=== PATIENT | male | born 1960 | race Caucasian/White ===

== ENCOUNTER 2018-05-09 09:20 | Day surgery (SDC) | payer BC ==
--- NOTE | 2018-05-09 07:33 | PCM.PREANE ---
Preanesthetic Assessment - Anesthesia/Transfusion/Family Hx Anesthesia History: Prior Anesthesia Without Reaction (left hand surgery) Family History of Anesthesia Reaction: No Transfusion History: No Prior Transfusion(s) - Review of Systems Pulmonary: No Symptoms (smoker) Gastrointestinal: No Symptoms (GERD) Neurological: No Symptoms (anxiety) Other: Reports: None (DJD) - Physical Assessment Height: 1.8 m Weight: 75.75 kg - Allergies Allergies/Adverse Reactions: Allergies Allergy/AdvReac Type Severity Reaction Status Date / Time Iodinated Contrast- Oral and Allergy Rash Verified 05/03/18 14:49 IV Dye - Blood Blood Available: No Product(s) Available: None - Anesthesia Plan Pre-Op Medication Ordered: None - Acknowledgements Anesthesia Type Planned: General Anesthesia PreAnesthesia Questionnaire HEENT History: Reports: Other (See Below) Other HEENT History: wears glasses Gastrointestinal History: Reports: GERD Musculoskeletal History: Reports: Arthritis, Fracture Other Musculoskeletal History: hx fx little toe x2 Psychiatric History: Reports: Anxiety - Past Surgical History Head Surgeries/Procedures: Reports: None Musculoskeletal Surgical History: Reports: Other (See Below) Other Musculoskeletal Surgeries/Procedures:: hx surgery on left hand - SUBSTANCE USE Smoking Status *Q: Current Every Day Smoker Tobacco Use Within Last Twelve Months: Cigarettes Recreational Drug Use History: No - HOME MEDS Home Medications: Home Meds Diclofenac Sodium [Voltaren] 50 mg PO BEDTIME 05/03/18 [History] LORazepam [Ativan] 0.5 mg PO ASDIRECTED PRN 05/03/18 [History] Omeprazole 20 mg PO DAILY 05/03/18 [History] - CURRENT (IN HOUSE) MEDS Current Meds: Current Medications Hydrocodone Bitart/Acetaminophen ([place] 325-5 Mg) 1 tab PO Q4H PRN PRN Reason: Pain Bupivacaine HCl/Epinephrine Bitart ([place]aine 0.25%/Epinephrine 1:200,000) 10 ml INJECT ONETIME ONE Stop: 05/09/18 08:01 Cefazolin Sodium/Dextrose 2 gm (/ Premix) 50 mls @ 100 mls/hr IV ONETIME ONE Stop: 05/09/18 08:29 Lactated Ringer's (Ringers, Lactated) 1,000 mls @ 125 mls/hr IV ASDIRECTED [facility]
[~2018-05-09 09:20] MED LIST: Acetaminophen/HYDROcodone 325-5 MG Tab PO PRN; Bupivacaine 0.25%/EPINEPHrine 1:200,000 10 ML SDV INJECT ONE; Bupivacaine 25%/EPINEPHrine/PF 30 ML ONE; Lactated Ringers 1,000 ML IV SCH; ceFAZolin 2 GM in Premix Bag 1 BAG IV ONE
--- NOTE | 2018-05-09 10:23 | PCM.PREANE ---
Preanesthetic Assessment - Anesthesia/Transfusion/Family Hx Anesthesia History: Prior Anesthesia Without Reaction (left hand surgery) Family History of Anesthesia Reaction: No Transfusion History: No Prior Transfusion(s) - Review of Systems General: No Symptoms Pulmonary: No Symptoms Cardiovascular: No Symptoms Gastrointestinal: No Symptoms Neurological: No Symptoms Other: Reports: Anxiety (has KENNY, took lorazepan this am) - Physical Assessment NPO Status Date: 05/08/18 Height: 1.8 m Weight: 75.75 kg ASA Class: 2 Mental Status: Alert & Oriented x3 Airway Class: Mallampati = 2 Dentition: Reports: Broken Tooth/Teeth ROM/Head Extension: Full Lungs: Clear to Auscultation, Normal Respiratory Effort Cardiovascular: Regular Rate, Regular Rhythm - Allergies Allergies/Adverse Reactions: Allergies Allergy/AdvReac Type Severity Reaction Status Date / Time Iodinated Contrast- Oral and Allergy Rash Verified 05/03/18 14:49 IV Dye - Blood Blood Available: No Product(s) Available: None - Anesthesia Plan Pre-Op Medication Ordered: None - Acknowledgements Anesthesia Type Planned: General Anesthesia Pt an Appropriate Candidate for the Planned Anesthesia: Yes Alternatives and Risks of Anesthesia Discussed w Pt/Guardian: Yes Pt/Guardian Understands and Agrees with Anesthesia Plan: Yes Additional Comments: PLAN: GA_LMA PreAnesthesia Questionnaire HEENT History: Reports: Other (See Below) Other HEENT History: wears glasses Gastrointestinal History: Reports: GERD Musculoskeletal History: Reports: Arthritis, Fracture Other Musculoskeletal History: hx fx little toe x2 Psychiatric History: Reports: Anxiety - Past Surgical History Head Surgeries/Procedures: Reports: None Musculoskeletal Surgical History: Reports: Other (See Below) Other Musculoskeletal Surgeries/Procedures:: hx surgery on left hand - SUBSTANCE USE Smoking Status *Q: Current Every Day Smoker Tobacco Use Within Last Twelve Months: Cigarettes Recreational Drug Use History: No - HOME MEDS Home Medications: Home Meds Diclofenac Sodium [Voltaren] 50 mg PO BEDTIME 05/03/18 [History] LORazepam [Ativan] 0.5 mg PO ASDIRECTED PRN 05/03/18 [History] Omeprazole 20 mg PO DAILY 05/03/18 [History] - CURRENT (IN HOUSE) MEDS Current Meds: Current Medications Hydrocodone Bitart/Acetaminophen ([place] 325-5 Mg) 1 tab PO Q4H PRN PRN Reason: Pain Lactated Ringer's (Ringers, Lactated) 1,000 mls @ 125 mls/hr IV ASDIRECTED [facility] Discontinued Medications Bupivacaine HCl/Epinephrine Bitart (Marcaine 0.25%/Epinephrine 1:200,000) 10 ml INJECT ONETIME ONE Stop: 05/09/18 08:01 Cefazolin Sodium/Dextrose 2 gm (/ Premix) 50 mls @ 100 mls/hr IV ONETIME ONE Stop: 05/09/18 08:29 Bupivacaine HCl/Epinephrine Bitart (Sensorc Mpf 0.25%-Epi [id number]) Confirm Administered Dose 30 mls @ as directed .ROUTE .STK-MED ONE Stop: 05/09/18 07:53
[2018-05-09] MEDS ORDERED: Propofol 200 MG/20 ML SDV ONE (11:40)
[2018-05-09] MEDS ORDERED: Midazolam 1 MG/ML 2 ML SDV ONE (11:41)
[2018-05-09] MEDS ORDERED: fentaNYL 100 MCG/2 ML SDV ONE ×2 (11:41→13:28)
[2018-05-09] MEDS ORDERED: ceFAZolin/Dextrose,Iso-Osmotic 2 GM/50 ML Duplex Bag IV ONE (11:50)
[2018-05-09] MEDS ORDERED: Ondansetron 4 MG/2 ML SDV ONE (13:19)
[2018-05-09] MEDS ORDERED: Ketorolac 30 MG/ML SDV ONE (13:57)
--- NOTE | 2018-05-09 14:31 | PCM.POSTAN ---
POST ANESTHESIA ASSESSMENT - MENTAL STATUS Mental Status: Alert, Oriented - VITAL SIGNS Pulse Rate: 95 SaO2: 95 Resp Rate: 16 Blood Pressure: 125/82 Temperature: 37.1 C - RESPIRATORY Respiratory Status: Respiratory Rate WNL, Airway Patent, O2 Saturation Stable - CARDIOVASCULAR CV Status: Pulse Rate WNL, Blood Pressure Stable - GASTROINTESTINAL GI Status: No Symptoms - PAIN Pain Score: 0 (no pain,no nausea.) - POST OP HYDRATION Hydration Status: Adequate & Stable - OBSERVATIONS Free Text/Narrative:: good post op phase I recovery.
--- NOTE | 2018-05-09 14:52 | PCM48HPAN ---
Post Anesthesia Note - EVALUATION WITHIN 48HRS OF ANESTHETIC Vital Signs in Normal Range: Yes Patient Participated in Evaluation: Yes Respiratory Function Stable: Yes Airway Patent: Yes Cardiovascular Function Stable: Yes Hydration Status Stable: Yes Pain Control Satisfactory: Yes Nausea and Vomiting Control Satisfactory: Yes Pulse Rate: 95 SaO2: 96 Resp Rate: 20 Temperature: 37.1 C Blood Pressure: 125/82 - COMMENTS/OBSERVATIONS Free Text/Narrative:: Good post op phase II reovery.
--- NOTE | 2018-05-12 08:58 | PCM.OPNOTE ---
- General Post-Op/Procedure Note Date of Surgery/Procedure: 05/09/18 Operative Procedure(s): right carpometacarpal thumb arthroplasty - trapeziectomy with proximal metacarpal resection and ligament reconstruction with tendon interposition of the flexor carpi radialis tendon Pre Op Diagnosis: right thumb carpometacarpal arthritis severe Post-Op Diagnosis: Same Anesthesia Technique: General LMA, Local Primary Surgeon: Esther Cortez Road Worker: Pamela Ramirez Complications: None Condition: Good
--- NOTE | 2018-05-14 13:51 | OR ---
SURGEON: ERICA TINEO MD DATE OF PROCEDURE: 05/09/2018 PREOPERATIVE DIAGNOSIS: Right carpometacarpal arthritis, severe. POSTOPERATIVE DIAGNOSIS: Right carpometacarpal arthritis, severe. PROCEDURE: Right thumb carpometacarpal arthroplasty (trapeziectomy with proximal metacarpal resection and ligament reconstruction with tendon interposition of the flexor carpi radialis tendon). CAD DETAILER: SONA Pfeiffer. REASON FOR AND ROLE OF CAD DETAILER: Retraction, prepping, draping, positioning and closure assistance. ANESTHESIA: General LMA with local. INDICATIONS: Mr. Montoya is a 57-year-old gentleman seen today in evaluation for his severe right thumb CMC arthritis. He has previously had arthroplasty on the left and done well with that. He would like to proceed on the right. Risks were including, but not limited to, bleeding, infection, damage to underlying or overlying structures, possible need for future interventions, and possible scarring. PROCEDURE IN DETAIL: After informed consent was obtained and placed on the chart, the patient was brought to the operating theater and laid in supine position. After adequate general anesthesia was obtained, the area was prepped and draped and a time-out was completed to confirm side and site. After the arm was exsanguinated and tourniquet was insufflated to 200 mmHg, a curvilinear incision was made over the trapezium of the right thumb CMC joint. Dissection was carried down onto the bone itself and circumferentially around it and the trapezium was removed en bloc. Once adequately removed, fluoroscopy was used to confirm appropriate placement and the proximal metacarpal head was also transected using a bone saw to remove the arthritic portion. A debbie was then used to debbie a hole in the proximal end of the metacarpal through the sidewall for the ligament suspension. Once this was completed, a small volar forearm incision was made over the flexor carpi radialis musculotendinous junction. This was dissected and the tendon itself was removed from the muscular junction and brought into the distal wound. The tendon itself was placed through the proximal metacarpal debbie hole and folded back upon itself. Appropriate suspension was obtained and this was sutured to itself using a 4-0 FiberWire suture for suspension and appropriate opposition position. Once this was completed, the remainder of the tendon was rolled into a spacer and sutured together using the 4-0 Monocryl and 4-0 FiberWire. It was then sutured into the base of the wound for adequate cushion and a spacer in place of the trapezium. Once adequately placed, the tourniquet was desufflated and meticulous hemostasis was obtained and the joint capsule was then closed using a 4-0 Monocryl stitch. Once adequately closed and copiously irrigated, the skin was then closed using a 4-0 Monocryl stitch in a running subcuticular fashion. It was dressed with Steri-Strips. The patient tolerated this procedure well and the wound was dressed with fluffs, Kerlix, and a short-arm thumb spica splint for appropriate positioning. FOLLOWUP INSTRUCTIONS: The patient was given a prescription for pain control and will see us in followup evaluation in 2 weeks for custom splint placement. He was given a prescription for pain control. Call with any issues or concerns in the meantime. HEGGTHE / MARGARET /[id number]
== END 2018-05-09 15:40 | disposition home or self-care (01) ==
LOC: MW.SDS 09:20
PROVIDERS: ATTEND Plastic Surgery
DX: M18.11 Unilateral primary osteoarthritis of first carpometacarpal joint, right hand (principal); K21.9 Gastro-esophageal reflux disease without esophagitis; F17.210 Nicotine dependence, cigarettes, uncomplicated; Z91.041 Radiographic dye allergy status
CPT/HCPCS: 25447; 88304; 88311; J0690; J1885; J2250; J2405; J2704; J3010; J7120; 01830

== ENCOUNTER 2018-09-28 07:48 | Day surgery (SDC) | payer BC ==
[~2018-09-28 07:48] MED LIST changes: -Acetaminophen/HYDROcodone 325-5 MG Tab PO PRN; -Bupivacaine 0.25%/EPINEPHrine 1:200,000 10 ML SDV INJECT ONE; -Bupivacaine 25%/EPINEPHrine/PF 30 ML ONE; -ceFAZolin 2 GM in Premix Bag 1 BAG IV ONE
--- NOTE | 2018-09-28 08:46 | PCM.PREANE ---
Preanesthetic Assessment - Anesthesia/Transfusion/Family Hx Anesthesia History: Prior Anesthesia Without Reaction Family History of Anesthesia Reaction: No Transfusion History: No Prior Transfusion(s) Intubation History: Unknown - Review of Systems General: No Symptoms Pulmonary: No Symptoms Cardiovascular: No Symptoms Gastrointestinal: No Symptoms, Other (last colonoscopy 10 years ago - normal) Neurological: No Symptoms Other: Reports: None - Physical Assessment NPO Status Date: 09/27/18 NPO Status Time: 11:59 O2 Sat by Pulse Oximetry: 97 Respiratory Rate: 18 Vital Signs: Last Vital Signs Temp 36.0 C 09/28/18 08:15 Pulse 80 09/28/18 08:15 Resp 18 09/28/18 08:15 BP 136/88 09/28/18 08:15 Pulse Ox 97 09/28/18 08:15 Height: 5 ft 11 in Weight: 80.739 kg ASA Class: 2 Mental Status: Alert & Oriented x3 Airway Class: Mallampati = 2 Dentition: Reports: Normal Dentition (upper front teeth chipped) Thyro-Mental Finger Breadths: 3 Mouth Opening Finger Breadths: 3 ROM/Head Extension: Full Lungs: Clear to Auscultation, Normal Respiratory Effort Cardiovascular: Regular Rate, Regular Rhythm - Allergies Allergies/Adverse Reactions: Allergies Allergy/AdvReac Type Severity Reaction Status Date / Time Iodinated Contrast- Oral and Allergy Rash Verified 09/25/18 15:23 IV Dye - Blood Blood Available: No - Anesthesia Plan Pre-Op Medication Ordered: None - Acknowledgements Anesthesia Type Planned: MAC Pt an Appropriate Candidate for the Planned Anesthesia: Yes Alternatives and Risks of Anesthesia Discussed w Pt/Guardian: Yes Pt/Guardian Understands and Agrees with Anesthesia Plan: Yes PreAnesthesia Questionnaire HEENT History: Reports: Other (See Below) Other HEENT History: wears glasses Cardiovascular History: Reports: Hypertension Gastrointestinal History: Reports: GERD Musculoskeletal History: Reports: Arthritis, Fracture Other Musculoskeletal History: hx fx little toe x2 Psychiatric History: Reports: Anxiety - Past Surgical History Head Surgeries/Procedures: Reports: None GI Surgical History: Reports: Colonoscopy (x2 , last one 10 years ago- normal), EGD Musculoskeletal Surgical History: Reports: Other (See Below) Other Musculoskeletal Surgeries/Procedures:: hx surgery on both thumbs (tendon transfur) - SUBSTANCE USE Smoking Status *Q: Current Every Day Smoker (1/2 ppd) Tobacco Use Within Last Twelve Months: Cigarettes Days Per Week of Alcohol Use: 7 Number of Drinks Per Day: 2 Total Drinks Per Week: 14 Recreational Drug Use History: No - HOME MEDS Home Medications: Home Meds Diclofenac Sodium [Voltaren] 50 mg PO BID PRN 05/03/18 [History] LORazepam [Ativan] 0.5 mg PO ASDIRECTED PRN 05/03/18 [History] Omeprazole 20 mg PO DAILY 05/03/18 [History] - CURRENT (IN HOUSE) MEDS Current Meds: Current Medications Lactated Ringer's (Ringers, Lactated) 1,000 mls @ 125 mls/hr IV ASDIRECTED [facility] Last Admin: 09/28/18 08:25 Dose: 125 mls/hr
[2018-09-28] MEDS ORDERED: Propofol 200 MG/20 ML SDV ONE (10:31)
[2018-09-28] MEDS ORDERED: fentaNYL 100 MCG/2 ML SDV ONE (10:31)
[2018-09-28] MEDS ORDERED: Midazolam 1 MG/ML 2 ML SDV ONE (10:31)
--- NOTE | 2018-09-28 11:47 | PCM.OPNOTE ---
- General Post-Op/Procedure Note Date of Surgery/Procedure: 09/28/18 Operative Procedure(s): egd w bx. colonoscopy Findings: see dict [id number] Pre Op Diagnosis: scrn colonoscopy and gerd Post-Op Diagnosis: Same Anesthesia Technique: Moderate Sedation Primary Surgeon: Zoran Armendariz Pathology: sent Complications: None Condition: Good
--- NOTE | 2018-09-28 16:23 | OR ---
SURGEON: Zoran Armendariz MD DATE OF PROCEDURE: 09/28/2018 PREOPERATIVE DIAGNOSES: Gastroesophageal reflux disease and screening colonoscopy. POSTOPERATIVE DIAGNOSES: Gastroesophageal reflux disease and screening colonoscopy. PROCEDURES PERFORMED: Esophagogastroduodenoscopy with biopsy. Colonoscopy. DESCRIPTION OF PROCEDURE: EGD: The patient was taken to the endoscopy room, and with the SHIPWRIGHT SUPERVISOR, Diprivan was administered. A well-lubricated EGD scope was gently inserted through the oropharynx, down the esophagus, passing through the gastroesophageal junction, into the stomach. The mucosa was examined upon the passage. Any etiology will be noted. Once in the stomach, we continued to advance to the distal antrum, passed through the pylorus into the second portion of the duodenum. Again, the mucosa was examined for any abnormality and etiology. The scope was then retrieved back to the stomach and then retroflexed to look at the fundus of the stomach. If a biopsy was indicated, we will biopsy the antrum, body, and gastroesophageal junction. The air will be sucked out while the scope is retrieved to reduce the patient's discomfort. The patient tolerated the procedure well. There were no intraoperative complications. Dr. Armendariz was present through the whole procedure. Prior to surgery, a time-out had been called, the patient identified, procedure identified and antibiotic administered. The patient was taken to the endoscopy room. A time out was called, patient identified, and procedure identified. Diprivan was then administrated. Patient went from awake to sleep, hearing doctor talking or door closing is normal. Perineum inspection and digital examination were then performed. A well- lubricated colonoscope was gently inserted through the rectum, advanced past the rectosigmoid junction, the descending colon, splenic flexure, transverse colon, hepatic flexure, ascending colon, arrived to the cecum. Cecum was identified as dictated in the finding. Then the scope was carefully withdrawn while attention was paid to the mucosal surface for any abnormality. Air will be sucked out during the scope withdrawal. At the rectum, retroflexed to examine any rectal diseases, fistula or hemorrhoids. Patient tolerated procedure well. There were no intraoperative complications, and Dr. Armendariz was present throughout the whole procedure. FINDINGS: EGD findings: 1. The patient is easily sedated with SHIPWRIGHT SUPERVISOR and Diprivan, the patient is soundly snoring. 2. Oropharynx and proximal esophagus were free of disease and GE junction at 40 shows mild salmon-colored change consistent with mild acid reflux. Stomach rugae are normal in appearance and antrum is a little bit inflamed and duodenum was grossly normal. Retrieved back to the fundus of stomach, there was no hiatal hernia. Biopsy done at antrum, body, GE junction at 40, and sucked out the gas while scope pulling out. During the whole study, there is no bile, food, or blood observed. Colonoscopy findings: 1. The patient is easily sedated with SHIPWRIGHT SUPERVISOR and Diprivan, the patient is soundly snoring. 2. Bowel prep is average with some liquid stool, no solid stool, and colon rather straightforward. Cecum indicated by ileocecal fold, one-to-one indentation, appendiceal orifice, and light emittance. Mucosa examined upon scope pulling out. The patient does not have diverticulosis, polyp, mass, growth, inflammation, stricture, AV malformation, bleeding. The patient has moderate internal hemorrhoid, no external hemorrhoid. The patient would benefit from repeat colonoscopy in 10 years from today or if clinically indicated otherwise. JENNIFER / MARGARET /[id number]
== END 2018-09-28 12:47 | disposition home or self-care (01) ==
LOC: MW.SDS 07:48
PROVIDERS: ATTEND Surgery
DX: Z12.11 Encounter for screening for malignant neoplasm of colon (principal); K21.0 Gastro-esophageal reflux disease with esophagitis; K29.50 Unspecified chronic gastritis without bleeding; I10 Essential (primary) hypertension; F17.210 Nicotine dependence, cigarettes, uncomplicated; Z91.041 Radiographic dye allergy status; Z79.899 Other long term (current) drug therapy
CPT/HCPCS: 43239; 45378; J2001; J2250; J2704; J3010; J7120